=== PATIENT | female | born 1945 | race African-American/Black ===

== ENCOUNTER 2017-05-01 10:51 | Emergency (ER) | payer OTHER ==
[~2017-05-01] VITALS: Ht 154.9 cm; Wt 68.0 kg
[~2017-05-01 10:51] MED LIST: AMLODIPINE BESYL5 M1 PO; AUGMENTIN 875875 MG PO; BACTRIM DS TAB1 EACH PO; GLUCOPHAGE500 MG PO; LASIX 20 MG TAB20 MG PO; MOBIC7.5 MG PO; NORCO 5-325 TA1 EACH PO; PRINIVIL20 MG PO; SYNTHROID100 MCG PO; TRIAMTERENE/HCT1 CA1 PO; ZOCOR 20 MG TAB20 M1 PO
[2017-05-01] MEDS ORDERED: DIOVAN320 MG PO (10:58)
[2017-05-01 11:14] LABS: ABSOLUTE EOSINOPHILS 0.2 thou/uL (0.0-0.7); ABSOLUTE LYMPHOCYTES 2.4 thou/uL (0.8-5.3); ABSOLUTE MONOCYTES 0.4 thou/uL (0.0-1.2); ABSOLUTE NEUTROPHILS 3.1 thou/uL (1.6-8.1); BASOPHILS 0.6 %; EOSINOPHILS 2.5 %; HEMATOCRIT 40.3 % (37.0-47.0); HEMOGLOBIN 13.3 gm/dL (12.0-15.0); LYMPHOCYTES 39.4 %; MCH 30.8 pg (26.0-34.0); MCV 93.2 fL (80.0-100.0); MONOCYTES 7.1 %; MPV 7.4 fl. (7.2-11.1); NUCLEATED RBCS 0 /100WBC; PLATELET COUNT* 223 thou/uL (150-400); POLYS 50.4 %; RBC 4.32 mil/uL (4.20-5.00); RDW-CV 13.7 % (10.5-14.5); WBC 6.1 thou/uL (4.0-11.0)
[2017-05-01 11:21] LABS: CALCIUM 8.8 mg/dL (8.5-10.1); CREATININE 0.9 mg/dL (0.6-1.3); POTASSIUM 3.7 mmol/L (3.5-5.1)
[2017-05-01 11:32] LABS: ALBUMIN 3.9 g/dL (3.4-5.0); TOTAL BILIRUBIN 0.5 mg/dL (<0.1-1.0)
[2017-05-01 11:52] VITALS: BP 143/74
--- NOTE | 2017-05-01 16:27 | EKG ---
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 : 1945 Requested By: Jacky Wilson Order Number: [id number] MD: Taqueria Salmeron Measurements Intervals [place] Rate: 82 P: 44 ME: 173 QRS: -79 QRSD: 137 T: -7 QT: 408 QTc: 477 Interpretive Statements Sinus rhythm Left atrial enlargement Right bundle branch block Compared to ECG 05/29/2016 08:23:40 Left anterior fascicular block no longer present Electronically Signed On 05-01-2017 16:27:27 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
== END 2017-05-01 11:52 | disposition home or self-care (01) ==
LOC: M.ERS 10:51
PROVIDERS: Family Medicine
DX: I10 Essential (primary) hypertension (principal); E11.9 Type 2 diabetes mellitus without complications; E03.9 Hypothyroidism, unspecified

== ENCOUNTER 2020-01-16 10:07 | Inpatient (IN) | payer OTHER ==
[~2020-01-16] VITALS: Ht 157.5 cm; Wt 66.2 kg
--- NOTE | ~2020-01-16 | CON ---
[address] [address] CONSULTATION Name: LINDA DÍAZ Room: [place] [address] ADM IN [facility]#: [id number] Admission: 01/16/20 Attend Phys: Tucker Orozco MD Discharge: Date of : 47 Report #: [id number] THIS REPORT FOR: //name// cc: Paco Wesley MD, Arthur MD ~ THIS REPORT FOR: //name// HISTORY OF PRESENT ILLNESS: This is a 74-year-old female patient who was evaluated by me for any neurological etiology for the patient's dizziness. It started spontaneously. There was no trauma. She does not know anything which makes it better or worse. She had complained of some weakness, but she did not do that to me and she said it was dizziness, which is also becoming better. She had dizziness before, this one is more severe than before. It is not clear how long actually it is going. She said she was able to ambulate. REVIEW OF SYSTEMS: A 14-point review of systems is positive for diabetes, hypertension, sarcoidosis, hypothyroidism. She denies any eye, ENT, cardiac, respiratory, GI, , musculoskeletal, constitutional, dermatological, hematological, psychiatric, throat, allergic symptom associated with present symptomatology. PAST MEDICAL HISTORY: Positive for dizziness, but this one was more severe. FAMILY HISTORY: Unremarkable. SOCIAL HISTORY: She indicates she does not smoke or drink alcohol on a regular basis. PHYSICAL EXAMINATION: Indicate she is alert. She is responsive. She is able to follow simple and complex command. She and family thinks her speech, concentration, fund of knowledge and memory is at her baseline. Cranial nerve examination 2-12 was unremarkable. I did not see any nystagmus. Emergency Room physician had seen the nystagmus, but that appeared to have resolved. She moves all 4 extremities reasonably well and neuromuscular examination as checked for motor, sensory, reflex and tone was symmetrical. Reflexes are diminished, but that is expected with diabetes. Both plantars are mute. She does dkknvx-rk-usny and qtfq-gm-kbyw reasonably well. There is no meningeal sign. There is no carotid bruit. I could not look at the patient's fundus. She is moderately built individual who does not have any dysmorphic features of eyes, ears and face. Her vision and hearing looks adequate. Pulses are palpable, although somewhat difficult to feel. There is no carotid bruit. There is no thyroid mass. LUNGS: No respiratory difficulty or rhonchi was noticed on either side. VITAL SIGNS Blood pressure is 148/68, respiration is 14, pulse is 92, temperature is 98. LABORATORY DATA: White count is 11.6. Sodium is normal. The blood sugar is [facility] [address] [place] [address] CONSULTATION Name: ARJUNLINDA Room: [address] IN [facility]#: [id number] Admission: 01/16/20 Attend Phys: Tucker Orozco MD Discharge: Date of : 47 Report #: [id number] somewhat high. She did have a CT and subsequently had a CT angio and that appear unremarkable. IMPRESSION: Probably ENT etiology for the patient's dizziness. I have ordered an MRI of the brain. If MRI is also unremarkable, neurological cause will be even less likely. I will suggest looking for other etiologies including ENT and cardiac etiology for the patient's symptom and that workup, I will defer to you. No ENT physician comes here and so you may ask physical therapy to do the Dena maneuver on this patient. Thank you very much for allowing me to share in the management of this patient, and please call if there is any question. By: 1419 1504Pbrandee Patel MD /nt
[~2020-01-16 10:07] MED LIST changes: +DIOVAN320 MG PO
[2020-01-16 10:19] VITALS: BP 149/72
[2020-01-16] MEDS ORDERED: ROSUVASTATIN CA20 MG PO (10:23)
[2020-01-16] MEDS ORDERED: NORVASC 2.5 MG2.5 M1 PO (10:23)
[2020-01-16 10:56] LABS: ABSOLUTE BASOPHILS 0.1 thou/uL (0.0-0.2); ABSOLUTE EOSINOPHILS 0.3 thou/uL (0.0-0.7); ABSOLUTE MONOCYTES 0.7 thou/uL (0.0-1.2); ABSOLUTE NEUTROPHILS 3.6 thou/uL (1.6-8.1); BASOPHILS 0.4 %; EOSINOPHILS 2.6 %; HEMATOCRIT 40.7 % (37.0-47.0); HEMOGLOBIN 13.1 gm/dL (12.0-15.0); LYMPHOCYTES 60.1 %; MCH 29.9 pg (26.0-34.0); MCHC 32.3 g/dL (28.0-37.0); MCV 92.6 fL (80.0-100.0); MONOCYTES 5.6 %; MPV 7.7 fl. (7.2-11.1); NUCLEATED RBCS 0 /100WBC; PLATELET COUNT* 271 thou/uL (150-400); POLYS 31.3 %; RBC 4.39 mil/uL (4.20-5.00); RDW-CV 14.5 % (10.5-14.5); WBC 11.6 thou/uL (4.0-11.0)
[2020-01-16 11:01] LABS: CALCIUM 9.3 mg/dL (8.5-10.1); CREATININE 1.2 mg/dL (0.6-1.3); POTASSIUM 3.5 mmol/L (3.5-5.1)
[2020-01-16 11:02] LABS: PROTIME 10.3 Seconds (9.20-11.50)
[2020-01-16 11:12] LABS: ALBUMIN 4.4 g/dL (3.4-5.0); TOTAL BILIRUBIN 0.5 mg/dL (<0.1-1.0); TOTAL PROTEIN 8.5 g/dL (6.4-8.2)
--- NOTE | 2020-01-16 16:19 | EKG ---
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 : 1945 Requested By: Troy Nassar Order Number: [id number] MD: Alex Garcia Measurements Intervals [place] Rate: 94 P: 54 CT: 185 QRS: -81 QRSD: 143 T: 6 QT: 397 QTc: 497 Interpretive Statements Sinus rhythm Left atrial enlargement Right bundle branch block Baseline wander in lead(s) II,III,aVF Compared to ECG 05/01/2017 10:57:45 No significant changes Electronically Signed On 01-16-2020 16:19:33 CDT by Alex Garcia [email or web address] <ELECTRONICALLY SIGNED> By: Alex Garcia MD, FACC 01/16/20 1619 1021 1021 Alex Garcia MD, FAC /EPI
[2020-01-16 18:18] VITALS: BP 129/60
[2020-01-16 18:23] LABS: URINE BILIRUBIN NEGATIVE (Negative); URINE BLOOD TRACE (Negative); URINE CLARITY CLEAR; URINE COLOR YELLOW; URINE GLUCOSE-RANDOM NEGATIVE (Negative); URINE KETONES NEGATIVE (Negative); URINE LEUKOCYTES-REFLEX NEGATIVE (Negative); URINE NITRITE-REFLEX NEGATIVE (Negative); URINE PROTEIN NEGATIVE (Negative); URINE SPECIFIC GRAVITY <= 1.005 (1.005-1.030); URINE UROBILINOGEN 0.2 E.U./dl (0.2-1.0)
[2020-01-16 20:20] VITALS: BP 129/60
[2020-01-17] VITALS: BP 122/60
[2020-01-17 04:00] VITALS: BP 116/63
[2020-01-17 05:12] LABS: CHOLESTEROL 149 mg/dL (<200); HDL CHOLESTEROL 91 mg/dL (>40); LDL CHOLESTEROL 46 mg/dL (<100); TC:HDL 1.6 Ratio (Not establshd); TRIGLYCERIDE 63 mg/dL (<150); VLDL 13 mg/dL (<40)
[2020-01-17 05:20] LABS: SERUM ASSESSMENT CLEAR
[2020-01-17 07:08] LABS: GLYCOHEMOGLOBIN (HGB A1C) 7.1 % (4.8-5.6)
[2020-01-17 08:59] VITALS: BP 135/65
[2020-01-17 11:56] VITALS: BP 135/65
== END 2020-01-17 13:17 | disposition home or self-care (01) | DRG 149 ==
LOC: M.ERS 10:07 → M.TBA-ER 12:33 → M.2W 12:33
PROVIDERS: Emergency Medicine Emergency Medical Services; ADMIT Internal Medicine; ATTEND Internal Medicine
DX: H81.4 Vertigo of central origin (principal); E03.9 Hypothyroidism, unspecified; I10 Essential (primary) hypertension; E11.9 Type 2 diabetes mellitus without complications; D86.9 Sarcoidosis, unspecified; Z20.828 Contact with and (suspected) exposure to other viral communicable diseases; Z79.899 Other long term (current) drug therapy; Z79.84 Long term (current) use of oral hypoglycemic drugs

== ENCOUNTER → 2020-04-28 | Outpatient (CLI) | payer OTHER ==
[~2020-04-28] MED LIST changes: +DIOVAN 80 MG TA80 M1 PO; +HYDROCODON-ACE1 EAC7 PO; +METFORMIN HCL1000 M1 PO; +NORVASC 2.5 MG2.5 M1 PO; +NORVASC10 MG PO; +OXYGEN MISCELL; +ROSUVASTATIN CA20 MG PO
== END ==
LOC: M.LAB 15:18
PROVIDERS: ATTEND Orthopaedic Surgery
DX: Z01.812 Encounter for preprocedural laboratory examination (principal); Z20.822 Contact with and (suspected) exposure to COVID-19; M65.332 Trigger finger, left middle finger

== ENCOUNTER → 2020-05-03 | Day surgery (SDC) | payer OTHER ==
--- NOTE | ~2020-05-03 | OP ---
[address] [address] OPERATIVE REPORT Name: LINDA DÍAZ Room: [facility]..#: [id number] Admission: 05/03/20 Attend Phys: Bari Cramer DO Discharge: Date of : 47 Report #: [id number] THIS REPORT FOR: cc: Paco Wesley MD, Arthur MD ~ Bari Cramer DO DATE OF SERVICE: 05/03/2020 This is Lovely Cramer dictating for Dr. Bari Cramer. PREOPERATIVE DIAGNOSIS: Left long finger trigger finger. POSTOPERATIVE DIAGNOSES: Left long trigger finger. PROCEDURE PERFORMED: Left long trigger finger release. TOURNIQUET TIME: 15 minutes. BLOOD LOSS: 5 mL. Lidocaine 10 mL. DESCRIPTION OF PROCEDURE: The patient was met in the preoperative suite where the correct hand and finger was marked and verified by the patient. She was then brought back to the operative suite. MAC anesthesia was then utilized. The patient was given anesthesia in the proper standard sterile fashion was utilized to do the draping, the correct procedure and the finger was then indicated by a facility in the room and all allergies were listed. Lidocaine 10 mL was then utilized to inject the trigger fingers to numb the finger and do a finger prep. Prior to incision was then utilized, I marked out and utilized directly over the A1 rip. The 15 blade knife was utilized to get down to fascia and then the tenotomies were used to spread apart the fascia. The A1 rip was visualized and released. The tendon was visualized in the entire procedure and was not injured during this. Next, the FDP and FDS were brought out and tenosynovitis was then removed from around the tendons. The incision was then irrigated with saline and closed with 4-0 nylon. The patient was placed in a bulky hand dressing and she will be able to be released from PACU and stabilized. By: 1421 1614Robereric Cramer DO /nt
[2020-05-03 07:59] LABS: HEMATOCRIT 40.1 % (37.0-47.0); MCH 29.8 pg (26.0-34.0); MCHC 32.4 g/dL (28.0-37.0); MCV 92.1 fL (80.0-100.0); MPV 7.2 fl. (7.2-11.1); RBC 4.36 mil/uL (4.20-5.00); RDW-CV 13.7 % (10.5-14.5); WBC 8.8 thou/uL (4.0-11.0)
[2020-05-03 08:11] LABS: CALCIUM 9.4 mg/dL (8.5-10.1); CREATININE 0.9 mg/dL (0.6-1.3); POTASSIUM 3.8 mmol/L (3.5-5.1)
--- NOTE | 2020-05-03 10:36 | EKG ---
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: : 1945 Requested By: Bari Cramer Order Number: [id number] Eulalio MD: Alex Garcia Measurements Intervals [place] Rate: 73 P: 62 [place]: 183 QRS: -71 QRSD: 140 T: -1 QT: 423 QTc: 467 Interpretive Statements Sinus rhythm Probable left atrial enlargement RBBB and LAFB Compared to ECG 01/16/2020 10:21:47 no change Electronically Signed On 05-03-2020 10:36:29 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
== END | disposition home or self-care (01) ==
LOC: M.SUR 06:02
PROVIDERS: ATTEND Orthopaedic Surgery
DX: M65.342 Trigger finger, left ring finger (principal); I10 Essential (primary) hypertension; E11.9 Type 2 diabetes mellitus without complications; E03.9 Hypothyroidism, unspecified; Z98.890 Other specified postprocedural states; Z79.899 Other long term (current) drug therapy